=== PATIENT | female | born 1965 | race Caucasian/White ===

== ENCOUNTER 2016-06-18 22:59 | Emergency (ER) | payer MEDICAID ==
[~2016-06-18] VITALS: Ht 165.1 cm; Wt 72.6 kg
--- NOTE | 2016-06-18 23:30 | NUR ---
PT SEEN AT CLINIC TODAY AND GIVEN MEDICATION AND A COUPLE OF INJECTIONS AND THEN WAS TOLD TO GO TO ER AND THAT SHE MAY HAVE PNEUMONIA.PT GOT INJECTIONS OF DECADRON,TORADOL,VISTARIL, ROCEPHIN AND POSSIBLY GENTAMICIN. PT ALERT, ORIENTED X 4, ABLE TO MAKE NEEDS KNOWN, MD AT BEDSIDE...
[2016-06-18] MEDS ORDERED: D-ME118S12 (23:46)
[2016-06-18] MEDS ORDERED: BENA20TA2 (23:46)
[2016-06-18] MEDS ORDERED: ALBU2.5V38 (23:46)
[2016-06-18] MEDS ORDERED: ONDA-26 (23:46)
[2016-06-18] MEDS ORDERED: LEVO500T90 (23:46)
[2016-06-18] MEDS ORDERED: IBUP-1955 (23:46)
[2016-06-18] MEDS ORDERED: HYDR25TA4 (23:46)
[2016-06-18] MEDS ORDERED: ALBU18HF2 (23:46)
[2016-06-19] MEDS ORDERED: ALBUTEROL SULFATE 2.5 MG/3 ML NEBU NEB ONE
[2016-06-19] MEDS ORDERED: IPRATROPIUM BROMIDE 0.5 MG/2.5 ML NEBU NEB ONE
[2016-06-19] MEDS ORDERED: IV NORMAL SALINE 1000 ML BAG IV ONE
[2016-06-19] MEDS ORDERED: ALBUTEROL SULFATE 2.5 MG/3 ML NEBU ONE (00:17)
[2016-06-19] MEDS ORDERED: IPRATROPIUM BROMIDE 0.5 MG/2.5 ML NEBU ONE (00:18)
[2016-06-19 00:41] LABS: *BILIRUBIN,URIN NEGATIVE (NEGATIVE); *BLOOD, URINE 2+ (NEGATIVE); *CLARITY,URINE SLIGHTLY CLOUDY (CLEAR); *COLOR,URINE YELLOW (YELLOW); *KETONES,URINE NEGATIVE (NEGATIVE); *PROTEIN,URINE 1+ (NEGATIVE); LEUKOCYTE ESTERASE ,URINE NEGATIVE (NEGATIVE); NITRITE, URINE NEGATIVE (NEGATIVE); PH,URINE 6.5 (5.0-8.0); UGLUCOSE TRACE (NEGATIVE)
[2016-06-19 01:11] LABS: BACTERIA,URINE MODERATE /HPF (NONE SEEN); WBC,URINE 0-3 /HPF (0-3)
[2016-06-19 01:12] LABS: SQUAMOUS EPITHELIAL CELL,UR MANY /HPF (NONE SEEN)
--- NOTE | 2016-06-19 02:02 | NUR ---
Patient discharged to home in stable conditon. Written and verbal after care instructions given. Patient verbalizes understanding of instructions. Pt walked out of ER unassisted with daughter in law and son at side...
[2016-06-19 02:03] VITALS: BP 137/89
== END 2016-06-19 02:04 | disposition home or self-care (01) ==
LOC: ER 22:59
DX: J40 Bronchitis, not specified as acute or chronic (principal); E86.0 Dehydration; I10 Essential (primary) hypertension; Z88.0 Allergy status to penicillin
CPT/HCPCS: 71010; A4663; J3590; J7030

== ENCOUNTER 2016-06-20 14:12 | Inpatient (IN) | payer MEDICAID, OTHER ==
[~2016-06-20] VITALS: Ht 165.1 cm; Wt 73.5 kg
[~2016-06-20 14:12] MED LIST: ALBU18HF2; ALBU2.5V38; BENA20TA2; D-ME118S12; HYDR25TA4; IBUP-1955; LEVO500T90; ONDA-26
--- NOTE | 2016-06-20 14:39 | NUR ---
DR HERCULES AT BEDSIDE FOR EVALUATION. CODE SEPSIS NOT CALLED PER MD ORDER.
[2016-06-20] MEDS ORDERED: IPRATROPIUM BROMIDE 0.5 MG/2.5 ML NEBU NEB ONE (14:45)
[2016-06-20] MEDS ORDERED: ALBUTEROL SULFATE 2.5 MG/3 ML NEBU CONT NEB ONE (14:45)
[2016-06-20] MEDS ORDERED: IV NORMAL SALINE 1000 ML BAG IV ONE (14:45)
[2016-06-20] MEDS ORDERED: ALBUTEROL SULFATE 2.5 MG/3 ML NEBU ONE (14:57)
[2016-06-20] MEDS ORDERED: IPRATROPIUM BROMIDE 0.5 MG/2.5 ML NEBU ONE (14:57)
[2016-06-20 15:02] LABS: BASOPHILS % (AUTO) 0.3 % (0.0-2.0); EOSINOPHILS % (AUTO) 0.3 % (0.0-7.0); HEMATOCRIT 38.2 % (37.0-47.0); HEMOGLOBIN 12.9 g/dL (12.0-16.0); LYMPHOCYTES # (AUTO) 1.1 K/uL (0.8-4.8); MEAN CORPUSCULAR HEMOGLOBIN 31.5 uug (27.0-31.0); MEAN CORPUSCULAR HGB CONC 34 g/dL (32.0-37.0); MONOCYTES # (AUTO) 0.3 K/uL (0.1-1.30); MONOCYTES % (AUTO) 4.9 % (0.0-11.0); NEUTROPHILS # (AUTO) 5.1 K/uL (1.8-8.9); NEUTROPHILS % (AUTO) 77.5 % (38.5-71.5); PLATELET COUNT (AUTO) 313 K/uL (150-450); RED BLOOD CELL COUNT(AUTO) 4.11 MIL/uL (4.20-5.40); WHITE BLOOD COUNT (AUTO) 6.5 K/uL (4.0-11.2)
[2016-06-20 15:18] LABS: TROPONIN I < 0.017 ng/mL (0.00-0.056)
[2016-06-20 15:20] LABS: CALCIUM 8.3 mg/dL (8.5-10.1); CREATININE 0.7 mg/dL (0.6-1.3); POTASSIUM 3.4 mmol/L (3.5-5.1)
[2016-06-20 15:24] LABS: ALBUMIN 3.1 g/dL (3.4-5.0); BILIRUBIN,DIRECT 0.1 mg/dL (0.0-0.2); BILIRUBIN,TOTAL 0.4 mg/dL (0.2-1.0); TOTAL PROTEIN, SERUM 7.8 g/dL (6.4-8.2)
[2016-06-20 15:27] LABS: *BILIRUBIN,URIN NEGATIVE (NEGATIVE); *BLOOD, URINE 2+ (NEGATIVE); *CLARITY,URINE CLEAR (CLEAR); *COLOR,URINE YELLOW (YELLOW); *KETONES,URINE NEGATIVE (NEGATIVE); *PROTEIN,URINE NEGATIVE (NEGATIVE); *UROBILINOGEN,URINE 0.2 E.U./dl (NORMAL); LEUKOCYTE ESTERASE ,URINE NEGATIVE (NEGATIVE); NITRITE, URINE NEGATIVE (NEGATIVE); UGLUCOSE NEGATIVE (NEGATIVE)
[2016-06-20 15:29] LABS: LACTIC ACID 1.2 mmol/L (0.4-2.0)
[2016-06-20 15:46] LABS: BACTERIA,URINE NONE SEEN /HPF (NONE SEEN); SQUAMOUS EPITHELIAL CELL,UR FEW /HPF (NONE SEEN); WBC,URINE 0-3 /HPF (0-3)
[2016-06-20] MEDS ORDERED: MORPHINE SULFATE 2 MG/1 ML DISP.SYRIN IV ONE (16:00)
[2016-06-20] MEDS ORDERED: LEVOFLOXACIN 750 MG/D5W 150 ML PIGGYBACK IV ONE (16:00)
[2016-06-20] MEDS ORDERED: MORPHINE SULFATE 2 MG/1 ML DISP.SYRIN ONE (16:14)
[2016-06-20] MEDS ORDERED: LEVOFLOXACIN 750MG/D5W 150 ML IV ONE (16:15)
[2016-06-20] MEDS ORDERED: IPRATROPIUM BROMIDE 0.5 MG/2.5 ML NEBU NEB PRN (16:45)
[2016-06-20] MEDS ORDERED: MORPHINE SULFATE 2 MG/1 ML DISP.SYRIN IV PRN (16:45)
[2016-06-20] MEDS ORDERED: POTASSIUM CHLORIDE 20 MEQ TAB.PRT.SR PO ONE (16:45)
[2016-06-20] MEDS ORDERED: ALBUTEROL SULFATE 2.5 MG/ 0.5 ML NEBU NEB PRN (16:45)
[2016-06-20] MEDS ORDERED: MAGNESIUM HYDROXIDE 30 ML LIQUID UDC PO PRN (16:45)
[2016-06-20] MEDS ORDERED: ONDANSETRON 4 MG/2 ML VIAL IV PRN (16:45)
[2016-06-20] MEDS ORDERED: ACETAMINOPHEN 325 MG TABLET PO ONE (17:00)
--- NOTE | 2016-06-20 17:12 | NUR ---
MSE COMPLETED, ALL MD ORDERS DONE. MRSA-NARES ORDERED SENT, BELONGINGS LIST DONE, ADMIT ORDER WRITTEN, SBAR REPORT TO GERARDO MALONE GIVEN. PT THEN TRANSPORTED VIA [facility] TO [id number].
[2016-06-20] MEDS ORDERED: ACETAMINOPHEN ES 500 MG TABLET ONE (17:15)
--- NOTE | 2016-06-20 17:40 | NUR ---
RECEIVED FOR ADMISSION 51 YEARS OLD FEMALE FROM ED WITH DX OF PNEUMONIA.PLACED INTO BED FIXED AND MADE COMFORTABLE.PATIENT IS ALERT AND ORIENTED SPEAKS ONLY [place]GISH BUT HER DAUGHTER IS AT THE BEDSIDE AND ASSISTING WITH THE ADMISSION PROCESS PATIENT IS ON ROOM AIR WITH NO SHORTNESS OF BREATH AT THIS TIME.PATIENT ORIENTED TO ROOM AND THE FACILITY PROTOCOL ORDERS NOTED FROM GAURAV ARAYA.
[2016-06-20] MEDS: DOCUSATE SODIUM 100 MG CAPSULE PO SCH (18:18)
[2016-06-20] MEDS: PANTOPRAZOLE SODIUM 40 MG TABLET.DR PO SCH (18:18)
[2016-06-20] MEDS: IV D5/ 0.9% NACL 1,000 ML IV PRN (18:19)
[2016-06-20] MEDS: AZITHROMYCIN IV 500 MG in IV DEXTROSE 5% 250 ML IV SCH (18:22)
--- NOTE | 2016-06-20 18:40 | NUR ---
DINNER SERVED AND PATIENT IS EATING DINNER AT THIS TIME.ZITHROMAX IN PROGRESS ORDERED.
[2016-06-20] MEDS: IPRATROPIUM BROMIDE 0.5 MG/2.5 ML NEBU NEB SCH (19:15)
[2016-06-20] MEDS: ALBUTEROL SULFATE 2.5 MG/3 ML NEBU NEB SCH (19:15)
[2016-06-20 20:00] VITALS: BP 98/57
--- NOTE | 2016-06-20 20:00 | NUR ---
Patient resting in bed, no respiratory distress, no SOB, no c/o of discomfort. No nausea/vomiting noted at this time. Family/ at bedside. Will continue to monitor.
[2016-06-21] VITALS: BP 99/63
[2016-06-21] MEDS: IPRATROPIUM BROMIDE 0.5 MG/2.5 ML NEBU NEB SCH ×4 (00:29→19:17)
[2016-06-21] MEDS: ALBUTEROL SULFATE 2.5 MG/3 ML NEBU NEB SCH ×4 (00:29→19:17)
[2016-06-21 04:00] VITALS: BP 101/68
[2016-06-21 07:19] LABS: ALANINE AMINOTRANSFERASE 28 U/L (14-59); ALBUMIN 2.6 g/dL (3.4-5.0); ALKALINE PHOSPHATASE 63 U/L (50-136); ASPARTATE AMINOTRANSFERASE 31 U/L (15-37); BILIRUBIN,TOTAL 0.3 mg/dL (0.2-1.0); CALCIUM 8.3 mg/dL (8.5-10.1); CARBON DIOXIDE 32 mmol/L (21-32); CHLORIDE 103 mmol/L (98-107); CHOLESTEROL 162 mg/dL (<200); GFR > 130 mL/min (>60); GLUCOSE 102 mg/dL (74-106); HDL CHOLESTEROL 39 mg/dL (40-60); MAGNESIUM 2.1 mg/dL (1.8-2.4); PHOSPHOROUS 4.3 mg/dL (2.5-4.9); POTASSIUM 3.5 mmol/L (3.5-5.1); SODIUM SERUM 141 mmol/L (136-145); TOTAL PROTEIN, SERUM 6.8 g/dL (6.4-8.2); TRIGLYCERIDES 83 MG/DL (30-150); UREA NITROGEN, BLOOD 5 mg/dL (7-18)
[2016-06-21 07:23] LABS: CREATININE 0.5 mg/dL (0.6-1.3)
[2016-06-21 07:35] LABS: THYROID STIMULATING HORMONE 0.937 mIU/mL (0.358-3.740)
--- NOTE | 2016-06-21 08:00 | NUR ---
RECEIVED PATIENT IN BED AWAKE ALERT AND ORIENTED VERY LITTLE GIBRALTARIAN BUT STATED THAT SHE IS OKAY.REMAIN ON IVF ORDERED TO HER LEFT FOREARM AND PATENT.BREAKFAST SERVED AND PATIENT IS TOLERATING HER FOOD WITH NO NAUSEA OR VOMITING AT THIS TIME.NO S/S OF ADVERSE OR ALLERGIC REACTIONS AT THIS TIME.NOT IN DISTRESS.
[2016-06-21 08:03] LABS: BASOPHILS % (AUTO) 0.4 % (0.0-2.0); EOSINOPHILS # (AUTO) 0.1 K/uL (0.0-0.7); EOSINOPHILS % (AUTO) 1.4 % (0.0-7.0); HEMATOCRIT 35.8 % (37.0-47.0); HEMOGLOBIN 12.4 g/dL (12.0-16.0); LYMPHOCYTES # (AUTO) 1.1 K/uL (0.8-4.8); LYMPHOCYTES % (AUTO) 29.7 % (20.5-51.5); MEAN CORPUSCULAR HEMOGLOBIN 32.5 uug (27.0-31.0); MEAN CORPUSCULAR HGB CONC 35 g/dL (32.0-37.0); MEAN CORPUSCULAR VOLUME 93.8 fL (81.0-99.0); MONOCYTES # (AUTO) 0.4 K/uL (0.1-1.30); MONOCYTES % (AUTO) 10.5 % (0.0-11.0); NEUTROPHILS # (AUTO) 2.2 K/uL (1.8-8.9); PLATELET COUNT (AUTO) 294 K/uL (150-450); RED BLOOD CELL COUNT(AUTO) 3.81 MIL/uL (4.20-5.40); RED CELL DISTRIBUTION WIDTH 11.6 % (11.5-14.5)
[2016-06-21 08:12] LABS: WHITE BLOOD COUNT (AUTO) 3.8 K/uL (4.0-11.2)
[2016-06-21] MEDS: DOCUSATE SODIUM 100 MG CAPSULE PO SCH (08:29)
[2016-06-21] MEDS: PANTOPRAZOLE SODIUM 40 MG TABLET.DR PO SCH (08:30)
[2016-06-21] MEDS: BENAZEPRIL HCL 20 MG TABLET PO SCH (08:30)
[2016-06-21] MEDS: HYDROCHLOROTHIAZIDE 25 MG TABLET PO SCH (08:30)
[2016-06-21] MEDS: IV D5/ 0.9% NACL 1,000 ML IV PRN (08:32)
[2016-06-21] MEDS ORDERED: POTASSIUM CHLORIDE 20 MEQ TAB.PRT.SR PO ONE (09:15)
[2016-06-21] MEDS: ACETAMINOPHEN 325 MG TABLET PO PRN (09:26)
[2016-06-21 11:59] VITALS: BP 94/66
--- NOTE | 2016-06-21 14:00 | NUR ---
RESTING STATED HAS DRY COUGH AT TIMES DENIES SHORTNESS OF BREATH NOT IN DISTRESS AT THIS TIME.
[2016-06-21 15:59] VITALS: BP 95/63
[2016-06-21] MEDS: AZITHROMYCIN IV 500 MG in IV DEXTROSE 5% 250 ML IV SCH (17:01)
--- NOTE | 2016-06-21 18:00 | NUR ---
RESTING IV SITE WAS CHANGED TO HER LEFT HAND SECONDARY TO PATIENT STATED THAT SHE HAS PAIN ON THE LEFT FOREARM SITE .NO OTHER COMPLAINTS AT THIS TIME.
[2016-06-21 20:00] VITALS: BP 111/76
--- NOTE | 2016-06-21 21:15 | NUR ---
Patient resting in bed, no respiratory distress, no SOB. Patient no c/o of discomfort, nausea or vomiting. Will continue to monitor.
[2016-06-22] MEDS: IV D5/ 0.9% NACL 1,000 ML IV PRN ×2 (00:53→13:59)
[2016-06-22] MEDS: IPRATROPIUM BROMIDE 0.5 MG/2.5 ML NEBU NEB SCH ×3 (01:11→13:45)
[2016-06-22] MEDS: ALBUTEROL SULFATE 2.5 MG/3 ML NEBU NEB SCH ×3 (01:11→13:45)
[2016-06-22 04:00] VITALS: BP 105/71
[2016-06-22 06:34] LABS: BASOPHILS % (AUTO) 0.6 % (0.0-2.0); EOSINOPHILS # (AUTO) 0.2 K/uL (0.0-0.7); HEMATOCRIT 36.2 % (37.0-47.0); HEMOGLOBIN 12.2 g/dL (12.0-16.0); LYMPHOCYTES # (AUTO) 1.3 K/uL (0.8-4.8); LYMPHOCYTES % (AUTO) 35.5 % (20.5-51.5); MEAN CORPUSCULAR HEMOGLOBIN 31.5 uug (27.0-31.0); MEAN CORPUSCULAR HGB CONC 34 g/dL (32.0-37.0); MEAN CORPUSCULAR VOLUME 93.3 fL (81.0-99.0); MONOCYTES # (AUTO) 0.3 K/uL (0.1-1.30); MONOCYTES % (AUTO) 7.8 % (0.0-11.0); NEUTROPHILS # (AUTO) 1.9 K/uL (1.8-8.9); NEUTROPHILS % (AUTO) 50.1 % (38.5-71.5); PLATELET COUNT (AUTO) 319 K/uL (150-450); RED BLOOD CELL COUNT(AUTO) 3.88 MIL/uL (4.20-5.40); RED CELL DISTRIBUTION WIDTH 11.8 % (11.5-14.5); WHITE BLOOD COUNT (AUTO) 3.7 K/uL (4.0-11.2)
[2016-06-22] MEDS: DOCUSATE SODIUM 100 MG CAPSULE PO SCH (08:32)
[2016-06-22] MEDS: ACETAMINOPHEN 325 MG TABLET PO PRN (08:32)
[2016-06-22] MEDS: HYDROCHLOROTHIAZIDE 25 MG TABLET PO SCH (08:33)
[2016-06-22] MEDS: BENAZEPRIL HCL 20 MG TABLET PO SCH (08:33)
[2016-06-22] MEDS: PANTOPRAZOLE SODIUM 40 MG TABLET.DR PO SCH (08:33)
[2016-06-22 09:14] LABS: CALCIUM 7.7 mg/dL (8.5-10.1); CARBON DIOXIDE 30 mmol/L (21-32); CHLORIDE 105 mmol/L (98-107); GFR > 130 mL/min (>60); GLUCOSE 109 mg/dL (74-106); MAGNESIUM 2.2 mg/dL (1.8-2.4); PHOSPHOROUS 3.7 mg/dL (2.5-4.9); POTASSIUM 3.8 mmol/L (3.5-5.1); SODIUM SERUM 142 mmol/L (136-145); UREA NITROGEN, BLOOD 9 mg/dL (7-18)
[2016-06-22 09:16] LABS: CREATININE 0.5 mg/dL (0.6-1.3)
--- NOTE | 2016-06-22 10:00 | NUR ---
PATIENT IS AWAKE ALERT AND ORIENTED C/O HEADACHE AND FEELING DIZZY BLOOD PRESSURE IS OKAY BENAZEPRIL HELD AND MEDICATED WITH TYLENOL ORDERED REMAIN ON IVF ORDERED AND IV ANTIBIOTICS WITH NO ADVERSE OR ALLERGIC REACTIONS AT THIS TIME.MADE COMFORTABLE AND WILL CONTINUE TO OBSERVE.
[2016-06-22 11:48] VITALS: BP 92/63
--- NOTE | 2016-06-22 13:45 | NUR ---
HHN TX NOT GIVEN AT THIS TIME, PT NOT IN ROOM.
--- NOTE | 2016-06-22 14:48 | NUR ---
PATIENT AMBULATED IN THE HALLWAY STAND BY ASSIST AND SHE SEATED BY THE WAITING AREA BY THE ELEVATOR FOR ABOUT AN HOUR AND THEN BACK TO BED.DENIES PAIN OR DISCOMFORT AT THIS TIME.
[2016-06-22 15:36] VITALS: BP 96/63
[2016-06-22] MEDS ORDERED: LEVO500T15 PO (17:36)
[2016-06-22] MEDS ORDERED: AZITHROMYCIN 250 MG TABLET PO SCH (18:00)
--- NOTE | 2016-06-22 18:20 | NUR ---
PATIENT DISCHARGED PICKED UP BY HER SON BRENNAN IN SATISFACTORY CONDITION WITH DISCHARGE INSTRUCTIONS AND PRESCRIPTIONS AND PATIENT INSTRUCTED TO CALL HER PRIMARY DOCTOR FOR A FOLLOW UP APPOINTMENT WITHIN THE NEXT ONE TO TWO WEEKS AND SHE EXPRESSED UNDERSTANDING.THE PHARMACIST WAS NOTIFIED FOR EDUCATION.
== END 2016-06-22 18:20 | disposition home or self-care (01) | DRG 720 ==
LOC: ER 14:12 → TELE 17:21 → MED 06-21 13:55
PROVIDERS: ADMIT Internal Medicine; ATTEND Internal Medicine
DX: A41.9 Sepsis, unspecified organism (principal); J18.9 Pneumonia, unspecified organism; E88.09 Other disorders of plasma-protein metabolism, not elsewhere classified; E87.6 Hypokalemia; I10 Essential (primary) hypertension; E78.5 Hyperlipidemia, unspecified; J45.909 Unspecified asthma, uncomplicated; Z90.710 Acquired absence of both cervix and uterus; R74.0 Nonspecific elevation of levels of transaminase and lactic acid dehydrogenase [LDH]; K29.70 Gastritis, unspecified, without bleeding
CPT/HCPCS: 36415; 70030-TC; 71010; 83605; 83735; 84100; 84443; 85025; 87040; 87400; 93005; 94640; 97001; A4663; J0456; J1956; J2270; J2405; J3590; J7030; J7042; J7060; Q0144

== ENCOUNTER 2017-06-27 18:42 | Emergency (ER) | payer OTHER ==
[~2017-06-27] VITALS: Ht 165.1 cm; Wt 72.6 kg
[~2017-06-27 18:42] MED LIST changes: -ALBU2.5V38; -D-ME118S12; -IBUP-1955; +LEVO500T2 PO; -LEVO500T90; -ONDA-26; +ONDA8TAB12
[2017-06-27] MEDS ORDERED: IPRATROPIUM BROMIDE 0.5 MG/2.5 ML NEBU NEB ONE (19:15)
[2017-06-27] MEDS ORDERED: IV NORMAL SALINE 500 ML BAG IV ONE (19:15)
[2017-06-27] MEDS ORDERED: ALBUTEROL SULFATE 2.5 MG/3 ML NEBU NEB ONE (19:15)
[2017-06-27] MEDS ORDERED: ALBUTEROL SULFATE 2.5 MG/3 ML NEBU ONE (19:34)
[2017-06-27] MEDS ORDERED: IPRATROPIUM BROMIDE 0.5 MG/2.5 ML NEBU ONE (19:34)
[2017-06-27] MEDS ORDERED: ONDANSETRON IV *ER 4 MG/2 ML VIAL IV ONE (19:45)
[2017-06-27] MEDS ORDERED: ONDANSETRON 4 MG/2 ML VIAL ONE (19:47)
[2017-06-27 19:50] LABS: BASOPHILS % (AUTO) 0.3 % (0.0-2.0); EOSINOPHILS % (AUTO) 0.2 % (0.0-7.0); HEMATOCRIT 39.2 % (31.2-41.9); HEMOGLOBIN 13.4 g/dL (10.9-14.3); LYMPHOCYTES # (AUTO) 0.6 K/uL (20.0-40.0); LYMPHOCYTES % (AUTO) 8.7 % (20.5-51.5); MEAN CORPUSCULAR HEMOGLOBIN 32.9 uug (24.7-32.8); MEAN CORPUSCULAR HGB CONC 34 g/dL (32.3-35.6); MEAN CORPUSCULAR VOLUME 96.4 fL (75.5-95.3); MONOCYTES # (AUTO) 0.6 K/uL (2.0-10.0); MONOCYTES % (AUTO) 9.8 % (0.0-11.0); NEUTROPHILS # (AUTO) 5.1 K/uL (1.8-8.9); PLATELET COUNT (AUTO) 343 K/uL (179-408); RED BLOOD CELL COUNT(AUTO) 4.07 MIL/uL (3.63-4.92); WHITE BLOOD COUNT (AUTO) 6.3 K/uL (3.8-11.8)
[2017-06-27 19:51] LABS: CREATININE 0.9 mg/dL (0.6-1.3); POTASSIUM 3.7 mmol/L (3.5-5.1)
--- NOTE | 2017-06-27 20:00 | NUR ---
PATIENT IN ROOM WITH NO DISTRESS NOTED. INTERACTING WITH FAMILY
[2017-06-27 20:04] LABS: BILIRUBIN,DIRECT 0.1 mg/dL (0.0-0.2); BILIRUBIN,TOTAL 0.2 mg/dL (0.2-1.0)
[2017-06-27] MEDS ORDERED: LEVOFLOXACIN 750 MG/D5W 150 ML PIGGYBACK IV ONE (20:15)
[2017-06-27] MEDS ORDERED: LEVOFLOXACIN 750MG/D5W 150 ML IV ONE (20:27)
--- NOTE | 2017-06-27 21:30 | NUR ---
PATIENT STATES "I FEEL BETTER NOW." NO DISTRESS NOTED
--- NOTE | 2017-06-27 22:03 | NUR ---
IV removed. Catheter intact and site benign. Pressure and 4x4 gauze applied to site. No bleeding noted.
[2017-06-27 22:04] VITALS: BP 128/75
--- NOTE | 2017-06-27 22:05 | NUR ---
Patient discharged to home in stable conditon WITH FAMILY TAKING PATIENT HOME. Written and verbal after care instructions given. Patient verbalizes understanding of instructions. WALKED OUT OF ER WITH NO DISTRESS NOTED
== END 2017-06-27 22:06 | disposition home or self-care (01) ==
LOC: ER 18:45
DX: J06.9 Acute upper respiratory infection, unspecified (principal); J45.909 Unspecified asthma, uncomplicated; Z88.0 Allergy status to penicillin; Z79.899 Other long term (current) drug therapy; Z79.2 Long term (current) use of antibiotics
CPT/HCPCS: 36415; 70030-TC; 71045; 83605; 85025; 87040; 93005; A4663; J1956; J2405; J3590; J7040

== ENCOUNTER → 2017-07-12 | Emergency (ER) | payer OTHER ==
[~2017-07-12] MED LIST changes: +KETOROLAC TROMETHAMINE 30 MG INJ ONE; +METOCLOPRAMIDE HCL 10 MG/2 ML VIAL ONE; +NITROFURANTOIN/NITROFURAN MAC 100 MG CAPSULE ONE; +diphenhydrAMINE 50 MG/1 ML VIAL ONE
== END | disposition home or self-care (01) ==
LOC: ER 19:43
DX: Z53.21 Procedure and treatment not carried out due to patient leaving prior to being seen by health care provider (principal)

== ENCOUNTER 2017-11-30 21:11 | Emergency (ER) | payer OTHER ==
[~2017-11-30] VITALS: Ht 157.5 cm; Wt 63.5 kg
[~2017-11-30 21:11] MED LIST changes: -BENA20TA2; +BENA20TA9; -KETOROLAC TROMETHAMINE 30 MG INJ ONE; -METOCLOPRAMIDE HCL 10 MG/2 ML VIAL ONE; -NITROFURANTOIN/NITROFURAN MAC 100 MG CAPSULE ONE; -diphenhydrAMINE 50 MG/1 ML VIAL ONE
[2017-11-30] MEDS: predniSONE 50 MG TABLET PO ONE (23:09)
[2017-11-30] MEDS ORDERED: predniSONE 50 MG TABLET ONE (23:13)
--- NOTE | 2017-11-30 23:40 | NUR ---
Patient discharged to home in stable conditon. Patient reported being pain free prior to discharge. Written and verbal after care instructions given. Patient verbalizes understanding of instructions. Patient able to ambulate unassisted with a steady gait. Patient left with all personal belongings.
[2017-11-30 23:48] VITALS: BP 128/84
== END 2017-11-30 23:40 | disposition home or self-care (01) ==
LOC: ER 21:12
DX: M54.31 Sciatica, right side (principal); Z88.0 Allergy status to penicillin
CPT/HCPCS: A4663; J7512

== ENCOUNTER 2017-12-18 14:03 | Emergency (ER) | payer OTHER ==
[~2017-12-18] VITALS: Ht 162.6 cm; Wt 72.6 kg
[2017-12-18] MEDS ORDERED: ALBU2.5V38 NEB (14:17)
[2017-12-18] MEDS ORDERED: predniSONE 20 MG TABLET PO ONE (14:45)
[2017-12-18] MEDS ORDERED: ALBUTEROL SULFATE 2.5 MG/3 ML NEBU NEB ONE (14:45)
[2017-12-18] MEDS ORDERED: predniSONE 10 MG TABLET ONE (14:46)
[2017-12-18] MEDS ORDERED: predniSONE 50 MG TABLET ONE (14:47)
[2017-12-18] MEDS ORDERED: ALBUTEROL SULFATE 2.5 MG/3 ML NEBU ONE (14:51)
--- NOTE | 2017-12-18 15:56 | NUR ---
Patient discharged to home in stable conditon. Written and verbal after care instructions given to patient. Patient verbalizes understanding of instructions. Patient requested a "doctor's note" for work excuse.
--- NOTE | 2017-12-18 16:01 | NUR ---
Discharge instructions were reiterated to patient's adult son who speaks fluent [place]anian.
== END 2017-12-18 16:03 | disposition home or self-care (01) ==
LOC: ER 14:04
DX: J45.901 Unspecified asthma with (acute) exacerbation (principal); Z88.0 Allergy status to penicillin
CPT/HCPCS: 71046; 94640; 99284; A4663; J7512 ×2

== ENCOUNTER 2019-01-12 20:38 | Emergency (ER) | payer OTHER ==
[~2019-01-12] VITALS: Ht 165.1 cm; Wt 79.4 kg
[~2019-01-12 20:38] MED LIST changes: -ALBU18HF2; +ALBU2.5V38 NEB; -HYDR25TA4; -LEVO500T2 PO; -ONDA8TAB12
[2019-01-12] MEDS ORDERED: IBUPROFEN 800 MG TABLET ONE (21:59)
[2019-01-12] MEDS ORDERED: IBUPROFEN 800 MG TABLET PO ONE (22:00)
--- NOTE | 2019-01-12 22:02 | NUR ---
Patient discharged to home in stable conditon. Written and verbal after care instructions given. Patient verbalizes understanding of instructions. Patient ambulated with stable gait.
[2019-01-12 22:04] VITALS: BP 131/88
== END 2019-01-12 22:10 | disposition home or self-care (01) ==
LOC: ER 20:39
DX: M72.2 Plantar fascial fibromatosis (principal); Z88.0 Allergy status to penicillin; Z79.899 Other long term (current) drug therapy
CPT/HCPCS: A4663

== ENCOUNTER 2019-04-04 20:29 | Emergency (ER) | payer OTHER ==
[~2019-04-04] VITALS: Ht 165.1 cm; Wt 74.8 kg
[2019-04-04] MEDS ORDERED: FURO-152 PO (20:41)
[2019-04-04] MEDS ORDERED: ONDANSETRON HCL 4 MG TABLET ONE (20:52)
[2019-04-04] MEDS ORDERED: HYDROMORPHONE 2 MG/1 ML DISP.SYRIN ONE (20:52)
[2019-04-04] MEDS ORDERED: ONDANSETRON ODT 4 MG TAB.RAPDIS SL ONE (21:00)
[2019-04-04] MEDS ORDERED: HYDROMORPHONE 1 MG/1 ML DISP.SYRIN IM ONE (21:00)
--- NOTE | 2019-04-04 21:30 | NUR ---
PT ABLE TO TOLERATE ORTHO APPLICATION PT ABLE TO RECEIVE GAIT TRAINING PRIOR TO FALLING ASLEEP
--- NOTE | 2019-04-04 22:04 | NUR ---
PT DENIES PAIN. STILL REPORTS SHE IS SLEEPY MONITORED ACCORDINGLY SPO2 AT 96%
--- NOTE | 2019-04-04 22:19 | NUR ---
Patient discharged to home in stable conditon. Written and verbal after care instructions given. Patient verbalizes understanding of instructions. Pt left ER in stable condition via wheelchair with family member who will take pt home. Pt appears in no distress. Vital signs stable. Respirations even + unlabored. Pt & family verbalize understanding of d/c instructions.
[2019-04-04 22:20] VITALS: BP 138/88
== END 2019-04-04 22:21 | disposition home or self-care (01) ==
LOC: ER 20:29
DX: S82.831A Other fracture of upper and lower end of right fibula, initial encounter for closed fracture (principal); Z88.0 Allergy status to penicillin; Z79.899 Other long term (current) drug therapy; W01.198A Fall on same level from slipping, tripping and stumbling with subsequent striking against other object, initial encounter; Y93.89 Activity, other specified; Y92.89 Other specified places as the place of occurrence of the external cause; Y99.8 Other external cause status
CPT/HCPCS: 29505; 73610; 96372; 99283; J1170; A4663; Q0162

== ENCOUNTER 2020-03-13 16:24 | Emergency (ER) | payer OTHER ==
[~2020-03-13] VITALS: Ht 165.1 cm; Wt 74.8 kg
[~2020-03-13 16:24] MED LIST changes: +FURO-152 PO
--- NOTE | 2020-03-13 16:38 | NUR ---
PT IN ROOM, TALKING OVER THE PHONE. RA 98%.
[2020-03-13] MEDS ORDERED: ALBUTEROL SULFATE 2.5 MG/3 ML NEBU NEB ONE (17:45)
[2020-03-13] MEDS ORDERED: ALBUTEROL SULFATE 2.5 MG/3 ML NEBU ONE (17:53)
--- NOTE | 2020-03-13 18:53 | NUR ---
pt says feels betterPatient discharged to home in stable condition. Written and verbal after care instructions given. Patient verbalizes understanding of instructions. Stressed follow up or return to ER for worsening s/s. pt says feels better.
--- NOTE | 2020-03-13 18:55 | NUR ---
lab called and covid +, called drea arevalo, pt daughter in law with results per pt request.
[2020-03-13 18:56] VITALS: BP 141/81
== END 2020-03-13 18:57 | disposition home or self-care (01) ==
LOC: ER 16:24
DX: U07.1 COVID-19 (principal); J45.901 Unspecified asthma with (acute) exacerbation; Z87.01 Personal history of pneumonia (recurrent); Z82.49 Family history of ischemic heart disease and other diseases of the circulatory system; Z88.0 Allergy status to penicillin; R03.0 Elevated blood-pressure reading, without diagnosis of hypertension
CPT/HCPCS: 71045; 93005; A4663

== ENCOUNTER 2021-03-09 03:32 | Emergency (ER) | payer OTHER ==
[~2021-03-09] VITALS: Ht 170.2 cm; Wt 72.6 kg
[2021-03-09] MEDS ORDERED: BENA20TA9 PO (03:49)
--- NOTE | 2021-03-09 03:51 | NUR ---
DR. HERNANDEZ A BEDSIDE, MSE IN PROGRESS.
--- NOTE | 2021-03-09 04:10 | NUR ---
LAB AT BEDSIDE.
[2021-03-09 04:32] LABS: ALANINE AMINOTRANSFERASE 47 U/L (14-59); ALKALINE PHOSPHATASE 108 U/L (50-136); ASPARTATE AMINOTRANSFERASE 22 U/L (15-37); BILIRUBIN,TOTAL 0.2 mg/dL (0.2-1.0); CARBON DIOXIDE 32 mmol/L (21-32); CHLORIDE 104 mmol/L (98-107); CREATININE 0.7 mg/dL (0.6-1.3); GLUCOSE 118 mg/dL (74-106); POTASSIUM 3.5 mmol/L (3.5-5.1); UREA NITROGEN, BLOOD 14 mg/dL (7-18)
[2021-03-09 04:36] LABS: HEMATOCRIT 41.3 % (31.2-41.9); MEAN CORPUSCULAR HEMOGLOBIN 33.7 uug (24.7-32.8); MEAN CORPUSCULAR VOLUME 98.3 fL (75.5-95.3); PLATELET COUNT (AUTO) 369 K/uL (179-408)
[2021-03-09 05:02] LABS: LIPASE 111 U/L (73-393)
[2021-03-09 05:05] LABS: BILIRUBIN,DIRECT < 0.1 mg/dL (0.0-0.2)
[2021-03-09] MEDS ORDERED: ONDANSETRON ODT 4 MG TAB.RAPDIS ONE (05:30)
[2021-03-09] MEDS ORDERED: ONDANSETRON ODT 4 MG TAB.RAPDIS SL ONE (05:30)
--- NOTE | 2021-03-09 05:41 | NUR ---
Patient discharged to home in stable condition. Written and verbal after care instructions given. Patient verbalizes understanding of instructions. Stressed follow up or return to ER for worsening s/s. Steady gait, denies any pain/discomfort upon discharge. No n/v no RHOADES or dizziness. Picked up by family.
[2021-03-09 05:42] VITALS: BP 148/83
== END 2021-03-09 05:42 | disposition home or self-care (01) ==
LOC: ER 03:35
DX: R10.13 Epigastric pain (principal); I10 Essential (primary) hypertension; Z87.01 Personal history of pneumonia (recurrent); J45.909 Unspecified asthma, uncomplicated
CPT/HCPCS: 36415; 70030-TC; 83690; 85025; 93005; A4663; Q0162

== ENCOUNTER 2021-04-20 15:57 | Emergency (ER) | payer OTHER ==
[~2021-04-20] VITALS: Ht 170.2 cm; Wt 72.6 kg
[~2021-04-20 15:57] MED LIST changes: -BENA20TA9; +BENA20TA9 PO
[2021-04-20] MEDS ORDERED: MAG HYDROX/AL HYDROX/SIMETH 30 ML LIQUID UDC PO ONE (18:45)
[2021-04-20] MEDS ORDERED: ALBUTEROL SULFATE 2.5 MG/3 ML NEBU NEB ONE (18:45)
[2021-04-20] MEDS ORDERED: predniSONE 20 MG TABLET PO ONE (18:45)
[2021-04-20] MEDS ORDERED: IPRATROPIUM BROMIDE 0.5 MG/2.5 ML NEBU NEB ONE (18:45)
[2021-04-20] MEDS ORDERED: predniSONE 50 MG TABLET ONE (19:29)
[2021-04-20] MEDS ORDERED: predniSONE 10 MG TABLET ONE (19:29)
[2021-04-20] MEDS ORDERED: MAG HYDROX/AL HYDROX/SIMETH 30 ML LIQUID UDC ONE (19:29)
[2021-04-20] MEDS ORDERED: ALBUTEROL SULFATE 2.5 MG/ 0.5 ML NEBU ONE (19:59)
[2021-04-20] MEDS ORDERED: IPRATROPIUM BROMIDE 0.5 MG/2.5 ML NEBU ONE (19:59)
[2021-04-20 20:21] LABS: CREATININE 0.6 mg/dL (0.6-1.3); MAGNESIUM 2.2 mg/dL (1.8-2.4); POTASSIUM 3.6 mmol/L (3.5-5.1)
[2021-04-20] MEDS ORDERED: ALBU6.7H9 INH (20:21)
[2021-04-20] MEDS ORDERED: PRED50TA PO (20:21)
[2021-04-20] MEDS ORDERED: FLUT12AE5 INH (20:21)
[2021-04-20 20:22] LABS: MEAN CORPUSCULAR HEMOGLOBIN 33.6 uug (24.7-32.8); MEAN CORPUSCULAR VOLUME 97.9 fL (75.5-95.3); PLATELET COUNT (AUTO) 355 K/uL (179-408)
--- NOTE | 2021-04-20 20:31 | NUR ---
Patient discharged to home in stable condition. Written and verbal after care instructions given. Patient verbalizes understanding of instructions. Stressed follow up or return to ER for worsening s/s.
[2021-04-20 20:32] VITALS: BP 145/88
== END 2021-04-20 20:32 | disposition home or self-care (01) ==
LOC: ER 15:57
DX: J45.901 Unspecified asthma with (acute) exacerbation (principal); Z87.01 Personal history of pneumonia (recurrent); Z88.0 Allergy status to penicillin
CPT/HCPCS: 36415; 71045; 80048; 83735; 85025; 94640; 99285; J7512 ×2; A4663; J3590

== ENCOUNTER 2021-11-09 21:22 | Emergency (ER) | payer SELFPAY ==
[~2021-11-09 21:22] MED LIST changes: +ALBU6.7H9 INH; +FLUT12AE5 INH; +PRED50TA PO
--- NOTE | 2021-11-09 22:30 | NUR ---
Patient was called to be triaged but was not present in the waiting room or outside of ER.
--- NOTE | 2021-11-09 23:00 | NUR ---
Patient was called to be triaged but was not present in the waiting room or outside of ER.
--- NOTE | 2021-11-09 23:12 | NUR ---
Patient was not triaged or seen by ERMD.
== END 2021-11-09 23:13 | disposition left against medical advice (07) ==
LOC: ER 21:23
DX: Z53.21 Procedure and treatment not carried out due to patient leaving prior to being seen by health care provider (principal)